=== PATIENT | male | born 1935 | race African-American/Black ===

== ENCOUNTER 2017-06-12 13:46 | Emergency (ER) | payer MEDICARE, MEDICAID, OTHER ==
[~2017-06-12] VITALS: Ht 177.8 cm; Wt 72.6 kg
[2017-06-12 14:10] VITALS: Ht 177.8 cm; Wt 72.6 kg
[2017-06-12 15:30] LABS: BASOPHIL % 0.4 % (0-2); PLATELET COUNT 200 x10^3mcL (130-400)
[2017-06-12 15:33] LABS: RED CELL DISTRIBUTION WIDTH 15.5 % (11.5-14.5)
[2017-06-12 15:41] LABS: CARBON DIOXIDE 29.2 mmol/L (21-32); CHLORIDE SERUM 105 mmol/L (98-107); GLUCOSE SERUM 110 mg/dL (74-106); POTASSIUM SERUM 3.3 mmol/L (3.5-5.1); SODIUM SERUM 143 mmol/L (136-145)
[2017-06-12 15:46] LABS: ALBUMIN 3.5 g/dL (3.4-5.0); ALKALINE PHOSPHATASE 83 U/L (46-116); ALT/SGPT 15 U/L (16-63); AMYLASE 78 U/L (25-115); AST/SGOT 14 U/L (15-37); BILIRUBIN TOTAL 0.5 mg/dL (0.20-1.00); CHOLESTEROL 192 mg/dL (<200); LIPASE 205 IU/L (73-393); MAGNESIUM 2.3 mg/dL (1.8-2.4); T4(THYROXINE) 6.8 ug/dL (4.7-13.3); TOTAL PROTEIN, SERUM 7.2 g/dL (6.4-8.2)
[2017-06-12 15:48] VITALS: BP 116/77
[2017-06-12 15:48] LABS: HDL CHOLESTEROL 67 mg/dL (40-60)
== END 2017-06-12 16:36 | disposition short-term general hospital (02) ==
LOC: ED 13:46
PROVIDERS: Emergency Medicine
DX: S06.5X0A Traumatic subdural hemorrhage without loss of consciousness, initial encounter (principal); I10 Essential (primary) hypertension; F03.90 Unspecified dementia, unspecified severity, without behavioral disturbance, psychotic disturbance, mood disturbance, and anxiety; R53.1 Weakness; W22.8XXA Striking against or struck by other objects, initial encounter; Y93.89 Activity, other specified; Y92.89 Other specified places as the place of occurrence of the external cause; Y99.8 Other external cause status
CPT/HCPCS: 36415; 82962; 83880; G0480; Q0092

== ENCOUNTER 2017-11-29 12:34 | Emergency (ER) | payer MEDICARE ==
[~2017-11-29] VITALS: Ht 182.9 cm; Wt 83.9 kg
[2017-11-29 12:39] VITALS: Ht 182.9 cm; Wt 83.9 kg
[2017-11-29 13:18] LABS: BASOPHIL % 0.7 % (0-2); PLATELET COUNT 190 x10^3mcL (130-400); RED CELL DISTRIBUTION WIDTH 13.9 % (11.5-14.5)
[2017-11-29 13:34] LABS: CALCIUM 9.4 mg/dL (8.5-10.1); CARBON DIOXIDE 32.5 mmol/L (21-32); CHLORIDE SERUM 102 mmol/L (98-107); CREATININE SERUM 1.1 mg/dL (0.7-1.3); GLUCOSE SERUM 124 mg/dL (74-106); POTASSIUM SERUM 3.7 mmol/L (3.5-5.1); SODIUM SERUM 134 mmol/L (136-145)
[2017-11-29 14:36] VITALS: BP 147/101
== END 2017-11-29 14:36 | disposition home or self-care (01) ==
LOC: ED 12:34
PROVIDERS: Emergency Medicine
DX: S00.83XA Contusion of other part of head, initial encounter (principal); S00.31XA Abrasion of nose, initial encounter; W22.8XXA Striking against or struck by other objects, initial encounter; Y93.89 Activity, other specified; Y92.89 Other specified places as the place of occurrence of the external cause; Y99.8 Other external cause status
CPT/HCPCS: 36415; 90715